=== PATIENT | female | born 1990 | race Caucasian/White ===

== ENCOUNTER 2017-03-14 03:15 | Inpatient (IN) | payer OTHER ==
[2017-03-14] MEDS: OXYTOCIN 20 UNITS in 0.9% NS 1,000 ML IV SCH ×2 (04:30→07:00)
[2017-03-14] MEDS: ACETAMINOPHEN 325 MG TABLET (FP) PO PRN ×2 (05:25→14:40)
[2017-03-14] MEDS: IBUPROFEN 600 MG TABLET (FP) PO PRN ×2 (05:25→14:41)
[2017-03-14 05:38] LABS: BASOPHIL 0.4 % (0-2.0); EOSINOPHIL 0.4 % (0-4.5); MCH 28.9 pg (25.7-33.7); MCHC 33.8 g/dl (32.0-36.0); MEAN CELL VOLUME 85.7 fl (80-96); MEAN PLT VOLUME 8.3 fl (7.5-11.1); NEUTROPHILS 78.8 % (42.8-82.8); PLATELET COUNT 307 K/MM3 (134-434); RDW 13.3 % (11.6-15.6); WHITE BLOOD COUNT 12.2 K/mm3 (4.0-10.0)
[2017-03-14 05:49] LABS: INR 0.88 (0.82-1.09)
[2017-03-14 05:52] LABS: ACTIVATED PTT 26.3 SECONDS (26.9-34.4)
[2017-03-14 05:56] LABS: SGOT/AST 9 U/L (15-37); SGPT/ALT 19 U/L (12-78)
[2017-03-14 05:59] LABS: ANION GAP 12 (8-16); BILIRUBIN,TOTAL 0.3 mg/dL (0.2-1.0); CALCIUM 8.3 mg/dL (8.5-10.1); CO2 24 mmol/L (21-32); CREATININE 0.6 mg/dL (0.55-1.02); GLUCOSE,RANDOM 86 mg/dL (74-106); SGOT/AST 8 U/L (15-37); SGPT/ALT 19 U/L (12-78); URIC ACID 3.3 mg/dL (2.6-7.2)
[2017-03-14 06:00] LABS: ALK PHOS 94 U/L (45-117)
[2017-03-14 06:26] VITALS: BMI 27.3
[2017-03-14] MEDS ORDERED: oxyCODONE HCL 5 MG TABLET PO PRN (07:58)
[2017-03-14] MEDS ORDERED: WITCH HAZEL 50% (TUCKS) 40 PAD/JAR PAD TP PRN (07:59)
[2017-03-14] MEDS ORDERED: BISACODYL 10 MG SUPP.RECT RC PRN (07:59)
[2017-03-14] MEDS ORDERED: BENZOCAINE 20% 57 GM BOTTLE TP PRN (07:59)
[2017-03-14] MEDS ORDERED: BENZOCAINE 28 GM HEMORRHOIDAL OINTMENT TP PRN (07:59)
[2017-03-14] MEDS ORDERED: METHYLERGONOVINE MALEATE 0.2 MG/1 ML AMP IM PRN (07:59)
--- NOTE | 2017-03-14 08:52 | HP ---
Past Medical History - Admission Chief Complaint: patient presented to L&D complaining of ruptured membrane and uterine contractions History of Present Illness: 27 year old female. 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: Alzheimer's, CVA, Dementia, Migraine, Multiple Sclerosis, Peripheral Neuropathy, Parkinson's, Seizure, Syncope, TIA, Vertigo, Other Cardiovascular: No: AFIB, Aneurysm, Aortic Insufficiency, Aortic Stenosis, CAD, CHF, Deep Vein Thrombosis, HTN, Hyperlipdemia, MA, Mitral Insufficiency, Mitral Stenosis, Murmur, Pulmonary Hypertension, Other Pulmonary: No: Asthma, Bronchitis, Cancer, COPD, O2 Dependent, Pneumonia, Previously Intubated, Pulmonary Embolus, Pulmonary Fibrosis, Sleep Apnea, Other Gastrointestinal: No: Ascites, Cancer, Constipation, Crohn's Disease, Diverticulitis, Diverticulosis, Esophageal Varices, Gastritis, GERD, GI Bleed, Hemorrhoids, Hiatal Hernia, Inflamatory Bowel Disease, Irritable Bowel Disease, Pancreatitis, Peptic Ulcer Disease, Ulcerative Colitis, Other Hepatobiliary: No: Cirrhosis, Cholelithiasis, Cholecystitis, Choledocholithiasis , Hepatitis A, Hepatitis B, Hepatitis C, Other Renal/: No: Renal Failure, Renal Inusuff, BPH, Cancer, Hematuria, Hemodialysis , Neurogenic Bladder, Renal Calculi, UTI, Other Reproductive: No: Ectopic , Endometriosis, Fibroids, PID, Polycystic Ovary Syndrome, Postmenopausal, Other ...: 2 ...Para: 1 ...Term: 1 ...: 0 ...Spon : 0 ...Induced : 0 ...Multiple Gestation: 0 ...LMP: 06/19/16 ... Weeks Gestation by Dates: 38.2 ...EDC by Dates: 03/26/17 ...EDC by Sono: 03/26/17 Heme/Onc: No: Anemia, B12 Deficiency, Bleeding Disorder, Cancer, Current Chemotherapy, Current Radiation Therapy, Hemochromatosis, Hypercoaguable State, Myeloproliferative Synd, Sickle Cell Disease, Sickle Cell Trait, Thrombocytopenia, Other Infectious Disease: No: AIDS, C-Diff, Herpes Zoster, HIV, MRSA, STD's, Tuberculosis, VREF, Other Psych: No: Addictions, Anxiety, Bipolar, Depression, Panic, Psychosis, Schizophrenia, Other Musculoskeletal: No: Bursitis, Chronic low back pain, Hemiparesis, Hemiplegia, Osteoarthritis, Paraplegia, Other Rheumatology: No: Fibromyalgia, Gout, Lupus, Rheumatoid Arthritis, Sarcoidosis, Vasculitis, Other ENT: No: Allergic Rhinitis, Sinusitis, Other Endocrine: No: Calaveras's Disease, Steve's Disease, Diabetes Insipidus, Diabetes Mellitus, Hyperparathyroidism, Hyperthyroidism, Hypothyroidism, Osteopenia, SIADH, Other Dermatology: No: Basal Cell, Cellulitis, Eczema, Melanoma, Psoriasis, Squamous Cell, Other - Past Surgical History Past Surgical History: No: None, AAA Repair, AICD, Amputation, Appendectomy, Arthrosocopy, AV Fistula/Graft, Bariatric Surgery, Breast Biopsy, Bypass, CABG, Carotid Endarterectomy, Cataract Removal, Cholecystectomy, Colectomy, Colonoscopy, Colostomy, Craniotomy, , Cystectomy, Hernia Repair, Hysterectomy, Ileal Conduit, Ileosotomy, Joint Replacement, Kidney Transplant, Laminectomy, Liver Transplant, Mastectomy, Nephrectomy, Oopherectomy, Orchiectomy, Permanent Pacemaker, Prostatectomy, Splenectomy, Stent, Thoracotomy , TURP, Tonsillectomy, Tubal Ligation, Upper Endoscopy, Valve Replacement, Vasectomy, Vein Stripping/Ligation Hx Myomectomy: No Hx Transabdominal Cerclage: No - Smoking History Smoking history: Never smoked Have you smoked in the past 12 months: No - Alcohol/Substance Use Hx Alcohol Use: No Home Medications - Allergies Allergies/Adverse Reactions: Allergies Allergy/AdvReac Type Severity Reaction Status Date / Time No Known Allergies Allergy Verified 03/14/17 06:14 - Home Medications Home Medications: Ambulatory Orders [id number]/Iron Fumarate/FA/Dss [ 19 Tablet] 1 tab PO DAILY 03/14/17 Family Disease History - Family Disease History Family History: Unremarkable Physical Exam - Maternity Vital Signs: Vital Signs Temperature 98.6 F 03/14/17 07:00 Pulse Rate 100 H 03/14/17 07:00 Respiratory Rate 20 03/14/17 07:00 Blood Pressure 131/75 03/14/17 07:00 O2 Sat by Pulse Oximetry (%) 100 03/14/17 05:50 Constitutional: Yes: Well Nourished, No Distress, Calm Eyes: Yes: WNL HENT: Yes: WNL Neck: Yes: WNL Cardiovascular: Yes: WNL Lungs: Normal air movement Breast(s): Yes: WNL - Abdominal Exam/OB Number of Fetuses: Single Presentation: Vertex Contractions: Yes Regularity: Regular Intensity: Moderate Monitor Mode: External Heart Rate (range): 140 BPM Heart Rate Location: [facility] Category: I Accelerations: Uniform Decelerations: None - Physical Exam Musculoskeletal: Yes: WNL Extremities: Yes: WNL Edema: No Integumentary: Yes: WNL Deep Tendon Reflex Grade: Normal +2 ...Motor Strength: WNL Psychiatric: Yes: WNL - Labs Lab Results: CBC, BMP 03/14/17 03:45 03/14/17 03:45 Assessment/Plan IUP at term in labor with ruptured membrane Plan: admit to L&D, assist with L&D, continous monitoring
--- NOTE | 2017-03-14 09:15 | PN ---
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
[2017-03-14 10:44] LABS: URINE APPEARANCE CLOUDY; URINE BILIRUBIN NEGATIVE (NEGATIVE); URINE BLOOD 3+ (NEGATIVE); URINE COLOR RED; URINE GLUCOSE (UA) 2+ (NEGATIVE); URINE KETONE TRACE (NEGATIVE); URINE NITRITE NEGATIVE (NEGATIVE); URINE UROBILINOGEN NEGATIVE mg/dL (0.2-1.0)
[2017-03-14 10:48] LABS: URINE PROTEIN 1+ (NEGATIVE)
[2017-03-14 10:50] LABS: URINE RBC 2233 /hpf (0-3); URINE WBC 71 /hpf (3-5)
[2017-03-14] MEDS ORDERED: TUBERCULIN PPD 5 TU/0.1ML SYRINGE (IN PATIENT USE ONLY) ID ONE (11:00)
[2017-03-14 17:59] LABS: URINE LEUK ESTERASE Negative (NEGATIVE)
--- NOTE | 2017-03-15 07:26 | PN ---
Post Progress Note - Subjective Subjective: Pt seen/evaluated and doing well. Pain controlled, tolerating diet. Ambulating , voiding, passing flatus. No complaints. Denies CP/SOB/F/C/CANTU. Type of Delivery: Vital Signs: Vital Signs Temperature 97.8 F 03/15/17 01:13 Pulse Rate 88 03/15/17 01:13 Respiratory Rate 20 03/15/17 01:13 Blood Pressure 128/58 03/15/17 01:13 O2 Sat by Pulse Oximetry (%) 100 03/14/17 05:50 Uterus: Yes: Fundus Firm, Fundus below umbilicus Abdomen/GI: Yes: Abdomen soft, Passing flatus, Tolerating PO. No: Tender Lochia: Yes: Rubra Lochia, amount: Small Extremities: Yes: Calves non-tender. No: Edema Perineum: Yes: Intact Activity: Ambulating - Labs Labs: CBC WBC 12.2 K/mm3 (4.0-10.0) H 03/14/17 03:45 RBC 4.02 M/mm3 (3.60-5.2) 03/14/17 03:45 Hgb 11.6 GM/dL (10.7-15.3) 03/14/17 03:45 Hct 34.5 % (32.4-45.2) 03/14/17 03:45 MCV 85.7 fl (80-96) 03/14/17 03:45 MCH 28.9 pg (25.7-33.7) 03/14/17 03:45 MCHC 33.8 g/dl (32.0-36.0) 03/14/17 03:45 RDW 13.3 % (11.6-15.6) 03/14/17 03:45 Plt Count 307 K/MM3 (134-434) 03/14/17 03:45 MPV 8.3 fl (7.5-11.1) 03/14/17 03:45 Neutrophils % 78.8 % (42.8-82.8) 03/14/17 03:45 Lymphocytes % 14.5 % (8-40) 03/14/17 03:45 Monocytes % 5.9 % (3.8-10.2) 03/14/17 03:45 Eosinophils % 0.4 % (0-4.5) 03/14/17 03:45 Basophils % 0.4 % (0-2.0) 03/14/17 03:45 Retic Count 1.37 % (0.5-1.5) 03/14/17 03:45 Problem List - Problems (1) Normal vaginal delivery Code(s): O80 - ENCOUNTER FOR FULL-TERM UNCOMPLICATED DELIVERY Assessment/Plan 27 y/o PPD#1 s/p normal - AFVSS - CBC pending - regular diet, PO pain meds, routine post care
[2017-03-15] MEDS ORDERED: SENNOSIDES/DOCUSATE COMBO (SENNA PLUS) TABLET (UD) PO PRN (07:59)
[2017-03-15 08:12] LABS: BASOPHIL 0.4 % (0-2.0); EOSINOPHIL 0.7 % (0-4.5); MCH 28.8 pg (25.7-33.7); MCHC 33.3 g/dl (32.0-36.0); MEAN CELL VOLUME 86.5 fl (80-96); MEAN PLT VOLUME 7.3 fl (7.5-11.1); NEUTROPHILS 63.5 % (42.8-82.8); PLATELET COUNT 293 K/MM3 (134-434); RDW 13.8 % (11.6-15.6); WHITE BLOOD COUNT 8.9 K/mm3 (4.0-10.0)
[2017-03-15] MEDS ORDERED: FLU VACC QS2017-18 36MOS UP/PF 60 MCG/0.5 ML SYRINGE IM ONE (10:00)
[2017-03-15] MEDS: OXYTOCIN 20 UNITS in 0.9% NS 1,000 ML IV SCH (10:18)
[2017-03-15] MEDS: IBUPROFEN 600 MG TABLET (FP) PO PRN (23:22)
[2017-03-15] MEDS: ACETAMINOPHEN 325 MG TABLET (FP) PO PRN (23:22)
--- NOTE | 2017-03-16 08:24 | DS ---
Physical Exam-AUTISM SPECIALIST Vital Signs: Vital Signs Temperature 98.1 F 03/15/17 22:00 Pulse Rate 84 03/15/17 22:00 Respiratory Rate 20 03/15/17 22:00 Blood Pressure 129/67 03/15/17 22:00 O2 Sat by Pulse Oximetry (%) 100 03/14/17 05:50 Constitutional: Yes: Well Nourished, No Distress, Calm Eyes: Yes: Conjunctiva Clear, EOM Intact HENT: Yes: Atraumatic, Normocephalic Neck: Yes: Supple, Trachea Midline Cardiovascular: Yes: Regular Rate and Rhythm Respiratory: Yes: Regular, CTA Bilaterally Gastrointestinal: Yes: Normal Bowel Sounds, Soft ....Post : Yes: Uterus firm, Uterus non-tender Neurological: Yes: Alert, Oriented Psychiatric: Yes: Alert, Oriented Labs: CBC, BMP 03/15/17 07:30 03/14/17 03:45 Delivery - Delivery Vaginal Delivery: No Problems, Spontaneous Type of Anesthesia: None Episiotomy/Laceration: None EBL (cc): 300 Delivery, Single - Stages of Labor Date 1st Stage Initiatied: 03/14/17 Time 1st Stage Initiated: 00:00 Date 2nd Stage Initiated: 03/14/17 Time 2nd Stage Initiated: 04:20 Date of Delivery: 03/14/17 Time of Delivery: 04:22 Time Placenta Delivered: 04:25 Placenta: Yes: Spontaneous - 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 Had uncomplicated normal and then underwent an unremarkable post course. Condition: Good - Instructions Diet, Activity, Other Instructions: Physical activity Resume your normal everyday activity as tolerated no heavy lifting or exercise until seen by your doctor. You may walk unlimited amounts and climb stairs. You may resume driving the car when you feel safe and comfortable behind the wheel. No sexual activity as instructed fpr 6 weeks. You may shower - do not soak or submerge in tubs/baths/pools for 6 weeks. Diet There are no dietary restrictions. Eat healthy, high-fiber foods. Drink 6 to 8 glasses of liquid each day. This will assist in keeping your bowels regular. Pain management You may take Tylenol or Ibuprofen (for example, Motrin, Advil etc.) as needed for pain. Call MD for any of the following: Severe pain not relieved by medication Fever of 101 or higher Excessive bleeding or drainage on dressing Inability to urinate Referrals: Val Lema DO [Staff Physician] - 1 Month (6 weeks) Disposition: HOME - Home Medications Comprehensive Discharge Medication List: Ambulatory Orders [id number]/Iron Fumarate/FA/Dss [ 19 Tablet] 1 tab PO DAILY 03/14/17 Ibuprofen [Motrin -] 600 mg PO QID PRN #28 tablet 03/16/17
[2017-03-16 11:04] VITALS: BP 131/85; PULSE 68; TEMP 98.3
== END 2017-03-16 13:00 | disposition home or self-care (01) | DRG 560 ==
LOC: JLDR 03:15 → J3W 13:45
PROVIDERS: ADMIT Obstetrics & Gynecology; ATTEND Obstetrics & Gynecology
PROC: 10E0XZZ Delivery of Products of Conception, External Approach (ICD-10-PCS; principal; 2017-03-14)
DX: O80 Encounter for full-term uncomplicated delivery (principal); Z3A.38 38 weeks gestation of pregnancy; Z37.0 Single live birth
CPT/HCPCS: 36415; 59409; 80053; 81003; 81015; 82977; 83010; 84450; 84460; 84550; 85025; 85044; 85610; 85730; 86593; 86850; 86900; 86901; 90686; G0008